=== PATIENT | female | born 1985 | race Caucasian/White ===

== ENCOUNTER 2020-12-08 21:06 | Emergency (ER) | payer OTHER ==
[~2020-12-08] VITALS: Ht 160 cm; Wt 115.0 kg
[2020-12-08] MEDS ORDERED: HYDROcodone/APAP 5/325 TABLET ONE (23:41)
[2020-12-08] MEDS ORDERED: KETOROLAC 30 MG/1 ML ONE (23:41)
[2020-12-09] MEDS ORDERED: HYDROcodone/APAP 5/325 TABLET PO ONE (00:30)
[2020-12-09] MEDS ORDERED: KETOROLAC 30 MG/1 ML IM ONE (00:30)
[2020-12-09 01:19] VITALS: BP 120/69
--- NOTE | 2020-12-09 01:37 | NUR ---
Patient/Caregiver given discharge instructions and they have confirmed that they understand the instructions. Patient INSTRUCTED ON CRUTCH METHOD AND TEACH BACK, AND WHEELCHAIRED OUT. NAD, all questions answered appropriately, denies additional needs at this time. No personal belongings left in room after discharge. PROVIDED CMS AND ORTHOPEDIC TEACHING.
== END 2020-12-09 01:39 | disposition home or self-care (01) ==
LOC: ED 23:46
DX: S82.855A Nondisplaced trimalleolar fracture of left lower leg, initial encounter for closed fracture (principal); S93.492A Sprain of other ligament of left ankle, initial encounter; M25.571 Pain in right ankle and joints of right foot; F17.200 Nicotine dependence, unspecified, uncomplicated; W18.30XA Fall on same level, unspecified, initial encounter; Y93.89 Activity, other specified; Y92.410 Unspecified street and highway as the place of occurrence of the external cause; Y99.8 Other external cause status
CPT/HCPCS: 29515; 73600; 73610; 96372; 99284; J1885